=== PATIENT | male | born 1965 | race African-American/Black ===

== ENCOUNTER 2019-09-27 16:06 | Emergency (ER) | payer OTHER ==
[~2019-09-27] VITALS: Ht 175.3 cm; Wt 113.6 kg
[2019-09-27] MEDS ORDERED: FLUORESCEIN SODIUM 1 MG STRIP OU ONE (16:30)
[2019-09-27] MEDS ORDERED: PROPARACAINE HCL 0.5% 15 ML OPHTHALMIC SOLUTION OU ONE (16:30)
[2019-09-27] MEDS ORDERED: IBUPROFEN 400 MG TABLET PO ONE (17:00)
[2019-09-27] MEDS ORDERED: ERYTHROMYCIN 0.5% 3.5 GM TUBE OPHTHALMIC OINTMENT ONE (17:00)
[2019-09-27 17:29] VITALS: BP 149/88
== END 2019-09-27 18:39 | disposition home or self-care (01) ==
LOC: EMS 16:09
DX: S05.02XA Injury of conjunctiva and corneal abrasion without foreign body, left eye, initial encounter (principal); M13.812 Other specified arthritis, left shoulder; Z90.89 Acquired absence of other organs; Z86.73 Personal history of transient ischemic attack (TIA), and cerebral infarction without residual deficits; W22.8XXA Striking against or struck by other objects, initial encounter; Y93.89 Activity, other specified; Y92.89 Other specified places as the place of occurrence of the external cause; Y99.0 Civilian activity done for income or pay

== ENCOUNTER 2019-10-01 16:58 | Emergency (ER) | payer OTHER ==
[~2019-10-01] VITALS: Ht 175.3 cm; Wt 115.9 kg
[2019-10-01 17:33] VITALS: BP 156/96
[2019-10-01] MEDS ORDERED: ERYT3.5O8 OS (17:49)
== END 2019-10-01 20:43 | disposition home or self-care (01) ==
LOC: EMS 16:58
DX: S40.012A Contusion of left shoulder, initial encounter (principal); S05.02XA Injury of conjunctiva and corneal abrasion without foreign body, left eye, initial encounter; Z90.89 Acquired absence of other organs; Z86.73 Personal history of transient ischemic attack (TIA), and cerebral infarction without residual deficits; W22.8XXA Striking against or struck by other objects, initial encounter; Y93.89 Activity, other specified; Y92.89 Other specified places as the place of occurrence of the external cause; Y99.8 Other external cause status